=== PATIENT | female | born 1995 | race American Indian/Alaskan Native ===

== ENCOUNTER 2017-07-05 16:14 | Emergency (ER) | payer OTHER ==
[2017-07-05] MEDS ORDERED: HYDROmorphone 0.5 MG/0.5 ML Syringe IVPUSH ONE (17:58)
[2017-07-05] MEDS ORDERED: Sodium Chloride 0.9% 1,000 ML IV ONE (17:58)
[2017-07-05] MEDS ORDERED: Ketorolac 30 MG/ML SDV IVPUSH ONE (17:59)
[2017-07-05] MEDS ORDERED: Ondansetron 4 MG/2 ML SDV IVPUSH ONE (17:59)
[2017-07-05] MEDS ORDERED: Sodium Chloride 0.9% 10 ML Syringe FLUSH PRN (17:59)
[2017-07-05] MEDS ORDERED: Ondansetron 4 MG/2 ML SDV ONE (18:42)
[2017-07-05] MEDS ORDERED: cefTRIAXone 2 GM in Sodium Chloride 0.9% 100 ML IV ONE (19:37)
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
[2017-07-05] MEDS ORDERED: Doxycycline 100 MG Cap PO ONE (20:39)
== END 2017-07-05 21:55 | disposition home or self-care (01) ==
LOC: SUPCPDRO 16:14 → JD.ED 16:14
DX: L76.32 Postprocedural hematoma of skin and subcutaneous tissue following other procedure (principal); Z87.891 Personal history of nicotine dependence
CPT/HCPCS: 36415; 80053; 81001; 83605; 84703; 85025; 86140; 87040; 87804; 96361; 96365; 96375; 99283; A9270; J0696; J1170; J1885; J2405; J7030; J7040; J7050; 99284